=== PATIENT | female | born 1970 | race Caucasian/White ===

== ENCOUNTER 2017-04-24 07:57 | Emergency (ER) | payer BC ==
[2017-04-24 08:28] VITALS: TEMP 97.2
[2017-04-24] MEDS ORDERED: SODIUM CHLORIDE 0.9% 1000ML 1,000 ML IV ONE (08:38)
[2017-04-24] MEDS ORDERED: SODIUM CHLORIDE 0.9% FLUSH 10 ML SOL IV PRN (08:39)
[2017-04-24] MEDS ORDERED: ONDANSETRON HCL 4 MG/2 ML SOL ONE (08:41)
[2017-04-24 08:50] LABS: BASOPHILS % (AUTO) 1 % (0-3); EOSINOPHILS % (AUTO) 1 % (0-9); MEAN CORPUSCULAR VOLUME 90 fL (81-99)
[2017-04-24] MEDS ORDERED: ONDANSETRON HCL 4 MG/2 ML SOL IV ONE (08:50)
[2017-04-24 09:10] LABS: HEMATOCRIT 37 % (35-47); MEAN CORPUSCULAR HGB CONC 36.1 gm/dl (32.0-36.0)
[2017-04-24 09:11] LABS: MONOCYTES % (AUTO) 5.1 % (0-12); NEUTROPHILS % (AUTO) 75.2 % (37-80)
[2017-04-24 09:12] LABS: CALCIUM 8.4 mg/dl (8.5-10.1); POTASSIUM 4.2 mMol/L (3.5-5.1)
[2017-04-24] MEDS ORDERED: MECLIZINE HYDROCHLORIDE 12.5 MG TAB PO ONE (09:28)
[2017-04-24] MEDS ORDERED: LORAZEPAM 2 MG/ML SOL IV ONE (09:29)
[2017-04-24] MEDS ORDERED: MECLIZINE HYDROCHLORIDE 12.5 MG TAB ONE (09:31)
[2017-04-24] MEDS ORDERED: LORAZEPAM 2 MG/ML SOL ONE (09:32)
[2017-04-24 10:09] VITALS: RESP 20
[2017-04-24 10:10] VITALS: BP 128/90; PULSE 92; O2SAT 99
== END 2017-04-24 10:28 | disposition home or self-care (01) ==
LOC: ED 07:57
DX: R42 Dizziness and giddiness (principal); H93.19 Tinnitus, unspecified ear; Z78.0 Asymptomatic menopausal state; R11.2 Nausea with vomiting, unspecified
CPT/HCPCS: 99285 ×3; 85025; 93005; J2060; J2405; 36415; 80048; 96365; 96374; 96375; 99283

== ENCOUNTER 2017-07-29 06:58 | Emergency (ER) | payer BC ==
[2017-07-29] MEDS ORDERED: ONDANSETRON HCL 4 MG/2 ML SOL IV ONE ×2 (07:00→08:37)
[2017-07-29] MEDS ORDERED: HYDROMORPHONE HCL 2 MG/ML SOL IV ONE (07:01)
[2017-07-29 07:11] LABS: APPEARANCE,URINE Slightly Cloudy; BILIRUBIN,URINE NEGATIVE (NEGATIVE); COLOR,URINE Yellow; GLUCOSE, URINE (UA) NEGATIVE (NEGATIVE); KETONES,URINE NEGATIVE (NEGATIVE); LEUKOCYTE ESTERASE ,URINE 1+ (NEGATIVE); NITRATE,URINE NEGATIVE (NEGATIVE); OCCULT BLOOD,URINE 2+ (NEG-TRACE); PH,URINE 5.5; UROBILINOGEN,URINE 0.2 (0.2-1.0 EU)
[2017-07-29 07:16] VITALS: RESP 20
[2017-07-29] MEDS ORDERED: HYDROMORPHONE HCL 2 MG/ML SOL ONE ×2 (07:17→08:26)
[2017-07-29] MEDS ORDERED: ONDANSETRON HCL 4 MG/2 ML SOL ONE ×2 (07:17→08:26)
[2017-07-29] MEDS: SODIUM CHLORIDE 0.9% 1000ML 1,000 ML IV SCH ×3 (07:22→10:10)
[2017-07-29] MEDS ORDERED: ONDANSETRON HCL 4 MG/2 ML 4 MG in SODIUM CHLORIDE 0.9% 100 ML 100 ML IV ONE (08:20)
[2017-07-29] MEDS ORDERED: HYDROMORPHONE 1 MG/ML SYRINGE IV PRN (08:20)
[2017-07-29] MEDS ORDERED: TAMSULOSIN HYDROCHLORIDE 0.4 MG CAP ONE (08:27)
[2017-07-29] MEDS ORDERED: TAMSULOSIN HYDROCHLORIDE 0.4 MG CAP PO SCH (08:30)
[2017-07-29] MEDS ORDERED: PROCHLORPERAZINE EDISYLATE 5 MG/ML SOL IV ONE (10:03)
[2017-07-29] MEDS ORDERED: PROCHLORPERAZINE EDISYLATE 5 MG/ML SOL ONE (10:04)
[2017-07-29] MEDS ORDERED: MECLIZINE HYDROCHLORIDE 12.5 MG TAB PO ONE (11:04)
[2017-07-29] MEDS ORDERED: MECLIZINE HYDROCHLORIDE 12.5 MG TAB ONE (11:08)
[2017-07-29] MEDS ORDERED: APAP/OXYCODONE 325/5 TAB PO ONE (12:39)
[2017-07-29] MEDS ORDERED: APAP/OXYCODONE 325/5 TAB ONE (12:40)
[2017-07-29] MEDS ORDERED: ONDANSETRON 4 MG ODT BU ONE (12:46)
[2017-07-29] MEDS ORDERED: ONDANSETRON 4 MG ODT ONE (12:46)
[2017-07-29] MEDS ORDERED: PROCHLORPERAZINE MALEATE 5 MG TAB PO ONE (13:19)
[2017-07-29] MEDS ORDERED: PROCHLORPERAZINE MALEATE 5 MG TAB ONE (13:29)
[2017-07-29 13:52] VITALS: PULSE 98; TEMP 97.5; O2SAT 99
[2017-07-29 15:12] VITALS: BP 130/65
[2017-07-29 20:08] LABS: POTASSIUM 4.5 mMol/L (3.5-5.1)
[2017-07-29 20:09] LABS: BASOPHILS % (AUTO) 0 % (0-3); EOSINOPHILS % (AUTO) 0 % (0-9); HEMATOCRIT 34 % (35-47); MEAN CORPUSCULAR HGB CONC 36.6 gm/dl (32.0-36.0); MEAN CORPUSCULAR VOLUME 87 fL (81-99); MONOCYTES % (AUTO) 4.1 % (0-12); NEUTROPHILS % (AUTO) 89.1 % (37-80)
[2017-07-29 21:24] LABS: APPEARANCE,URINE Clear; BILIRUBIN,URINE NEGATIVE (NEGATIVE); COLOR,URINE Yellow; GLUCOSE, URINE (UA) NEGATIVE (NEGATIVE); KETONES,URINE TRACE (NEGATIVE); LEUKOCYTE ESTERASE ,URINE NEGATIVE (NEGATIVE); NITRATE,URINE NEGATIVE (NEGATIVE); OCCULT BLOOD,URINE 2+ (NEG-TRACE); UROBILINOGEN,URINE 0.2 (0.2-1.0 EU)
[2017-07-29 21:39] LABS: RBC,URINE 20-25 (0-3AV/HPF)
== END 2017-07-29 16:15 | disposition home or self-care (01) ==
LOC: ED 06:58
DX: N13.6 Pyonephrosis (principal)
CPT/HCPCS: 74176; 80048; 81001; 85025; 96365; 96366; 96374; 96375; 99284; 99285; J0780; J1170; J2405; J2930; Q0164

== ENCOUNTER 2017-08-04 10:04 | Emergency (ER) | payer BC ==
[2017-08-04] MEDS ORDERED: ONDANSETRON HCL 4 MG/2 ML SOL ONE (10:23)
[2017-08-04] MEDS ORDERED: MORPHINE SULFATE 10 MG/ML SOL ONE (10:23)
[2017-08-04] MEDS ORDERED: MORPHINE SULFATE 10 MG/ML SOL IV ONE (10:28)
[2017-08-04] MEDS ORDERED: ONDANSETRON HCL 4 MG/2 ML SOL IV ONE (10:28)
[2017-08-04 10:34] LABS: BASOPHILS % (AUTO) 1 % (0-3); EOSINOPHILS % (AUTO) 2 % (0-9); HEMATOCRIT 38 % (35-47); MEAN CORPUSCULAR VOLUME 85 fL (81-99); MONOCYTES % (AUTO) 8.8 % (0-12)
[2017-08-04] MEDS ORDERED: SODIUM CHLORIDE 0.9% 1000ML 1,000 ML IV ONE (10:38)
[2017-08-04] MEDS ORDERED: SODIUM CHLORIDE 0.9% FLUSH 10 ML SOL IV PRN (10:38)
[2017-08-04 10:42] LABS: CALCIUM 9.4 mg/dl (8.5-10.1); POTASSIUM 3.3 mMol/L (3.5-5.1)
[2017-08-04 10:44] LABS: APPEARANCE,URINE Clear; BILIRUBIN,URINE NEGATIVE (NEGATIVE); COLOR,URINE Yellow; GLUCOSE, URINE (UA) NEGATIVE (NEGATIVE); KETONES,URINE NEGATIVE (NEGATIVE); LEUKOCYTE ESTERASE ,URINE TRACE (NEGATIVE); NITRATE,URINE NEGATIVE (NEGATIVE); OCCULT BLOOD,URINE 3+ (NEG-TRACE); PH,URINE 7.5; UROBILINOGEN,URINE 0.2 (0.2-1.0 EU)
[2017-08-04] MEDS ORDERED: HYDROMORPHONE HCL 2 MG/ML SOL IV ONE (10:45)
[2017-08-04] MEDS ORDERED: HYDROMORPHONE HCL 2 MG/ML SOL ONE (10:47)
[2017-08-04 11:03] LABS: RBC,URINE 50-60 (0-3AV/HPF); WBC,URINE 0-2 (0-5AV/HPF)
[2017-08-04 11:11] LABS: NORMAL RBCS PRESENT
[2017-08-04 13:21] VITALS: O2SAT 100
[2017-08-04 13:25] VITALS: BP 124/83; PULSE 89; RESP 20
[2017-08-04 13:28] VITALS: TEMP 97.6
[2017-08-04] MEDS ORDERED: LORAZEPAM 2 MG/ML SOL IV ONE (14:16)
[2017-08-04] MEDS ORDERED: LORAZEPAM 2 MG/ML SOL ONE (14:17)
== END 2017-08-04 15:30 | disposition home or self-care (01) ==
LOC: ED 10:04
DX: N23 Unspecified renal colic (principal); K59.00 Constipation, unspecified
CPT/HCPCS: 74020; 80053; 81001; 82150; 85025; 96365; 96374; 96375; 99284; 99285; J1170; J2060; J2270; J2405

== ENCOUNTER 2017-08-05 09:53 | Emergency (ER) | payer BC ==
[2017-08-05 09:53] VITALS: O2SAT 100
[2017-08-05 10:04] VITALS: BP 139/81; PULSE 71; RESP 20; TEMP 97.7
[2017-08-05] MEDS ORDERED: ONDANSETRON HCL 4 MG/2 ML SOL ONE (10:12)
[2017-08-05] MEDS ORDERED: SODIUM CHLORIDE 0.9% 1000ML 1,000 ML IV SCH (10:15)
[2017-08-05 10:28] LABS: BASOPHILS % (AUTO) 0 % (0-3); EOSINOPHILS % (AUTO) 0 % (0-9); HEMATOCRIT 36 % (35-47); MEAN CORPUSCULAR HGB CONC 36.9 gm/dl (32.0-36.0); MEAN CORPUSCULAR VOLUME 85 fL (81-99); MONOCYTES % (AUTO) 4.3 % (0-12); NEUTROPHILS % (AUTO) 86.3 % (37-80)
[2017-08-05 10:39] LABS: POTASSIUM 3.6 mMol/L (3.5-5.1)
[2017-08-05] MEDS ORDERED: ONDANSETRON HCL 4 MG/2 ML SOL IV ONE (10:47)
[2017-08-05] MEDS ORDERED: PROMETHAZINE HYDROCHLORIDE 25 MG/ML SOL IM ONE (11:38)
[2017-08-05] MEDS ORDERED: PROMETHAZINE HYDROCHLORIDE 25 MG/ML SOL ONE (11:42)
== END 2017-08-05 11:49 | disposition home or self-care (01) ==
LOC: ED 09:53
DX: N23 Unspecified renal colic (principal)
CPT/HCPCS: 80053; 85025; 96365; 96372; 96374; 99282; 99283; J2405; J2550